=== PATIENT | male | born 1980 | race Caucasian/White ===

== ENCOUNTER 2016-10-20 08:41 | Emergency (ER) | payer SELFPAY ==
[~2016-10-20] VITALS: Ht 165.1 cm; Wt 72.7 kg
[2016-10-20 09:07] LABS: GLUCOSE,POINT OF CARE 339 MG/DL (70-110)
[2016-10-20 11:02] LABS: GLUCOSE,POINT OF CARE 292 MG/DL (70-110)
[2016-10-20] MEDS ORDERED: LORazepam 1 MG TABLET PO ONE (12:30)
[2016-10-20 14:30] VITALS: BP 154/99
== END 2016-10-20 14:56 | disposition home or self-care (01) ==
LOC: EMS 08:44
DX: F41.9 Anxiety disorder, unspecified (principal); E11.65 Type 2 diabetes mellitus with hyperglycemia
CPT/HCPCS: 82962; 83036; 99283; 99284